=== PATIENT | male | born 1945 | race Caucasian/White ===

== ENCOUNTER 2017-02-27 10:25 | Inpatient (IN) | payer OTHER ==
[~2017-02-27] VITALS: Ht 188 cm; Wt 130.6 kg
[2017-02-27 11:27] LABS: EOSINOPHIL COUNT 0.1 K/uL (0-0.3); HEMATOCRIT 37.3 % (38.0-50.0); IMMATURE GRANULOCYTE (%) 0.3 % (0.0-0.7); INSTRUMENT ABS NEUTROPHIL CT 5.3 K/uL; LYMPHOCYTE COUNT 0.8 K/uL (1.0-2.8); MCH 28.5 PG (29.0-34.0); MCHC 31.4 G/DL (30.0-36.0); MEAN PLAT.VOLUME 12.1 uM^3 (9.0-12.4); MONOCYTE (%) 9.5 % (3-12); MONOCYTE COUNT 0.7 K/uL (0-0.8); NEUTROPHIL (%) 76.2 % (45-76); NEUTROPHIL COUNT 5.3 K/uL (1.8-6.4); PLATELET COUNT 206 K/uL (156-360); RBC DIS.WIDTH-CV 16.2 % (11.8-14.6); RBC DIS.WIDTH-SD 53.7 % (39-53)
[2017-02-27 11:40] LABS: CHLORIDE 103 mEq/L (99-109); POTASSIUM 4.6 mEq/L (3.7-5.4); SODIUM 143 mEq/L (136-147)
[2017-02-27 11:42] LABS: GLUCOSE 112 mg/dL (70-99)
[2017-02-27 11:43] LABS: ANION GAP 10 MEQ/L (2-14)
[2017-02-27 11:44] LABS: TOTAL BILIRUBIN 1.3 mg/dL (0.0-1.0)
[2017-02-27 11:45] LABS: ALKALINE PHOSPHATASE 169 IU/L (3-129)
[2017-02-27 11:46] LABS: GFR ESTIMATE (CALCULATED) 58 mL/min/
[2017-02-27 11:47] LABS: UREA NITROGEN (BUN) 29 mg/dL (9-23)
[2017-02-27 11:49] LABS: TROP-I INTERPRETATION NEGATIVE; TROPONIN-I 0.07 ng/mL (0.0-0.30)
[2017-02-27] MEDS ORDERED: POTASSIUM CHLO20 ME1 PO (12:03)
[2017-02-27] MEDS ORDERED: FUROSEMIDE40 MG PO (12:03)
[2017-02-27] MEDS ORDERED: CARVEDILOL25 MG PO (12:03)
[2017-02-27] MEDS ORDERED: FISH OIL 1,0001 EAC7 PO (12:03)
[2017-02-27] MEDS ORDERED: VITAMIN D31000 UNI2 PO (12:03)
[2017-02-27 18:50] VITALS: BP 146/85
[2017-02-27 19:19] VITALS: BP 138/88
[2017-02-27 23:26] VITALS: BP 130/72
[2017-02-28] VITALS (7 sets, daily range): BP systolic 118–166; BP diastolic 67–91
[2017-03-01 03:35] VITALS: BP 130/75
[2017-03-01 06:36] LABS: ALKALINE PHOSPHATASE 143 IU/L (3-129); ANION GAP 9 MEQ/L (2-14); CHLORIDE 102 MEQ/L (99-109); GFR ESTIMATE (CALCULATED) > 59 mL/min/; GLUCOSE 117 mg/dL (70-99); POTASSIUM 3.9 MEQ/L (3.7-5.4); SAMPLE HEMOLYSIS CHECK 0; SAMPLE ICTERIC CHECK 0; SAMPLE LIPEMIA CHECK 0; SODIUM 144 MEQ/L (136-147); UREA NITROGEN (BUN) 32 mg/dL (9-23)
[2017-03-01 08:53] VITALS: BP 123/68
[2017-03-01 12:34] VITALS: BP 104/54
[2017-03-01 15:51] VITALS: BP 111/69
[2017-03-01 19:50] VITALS: BP 111/71
[2017-03-02] VITALS (7 sets, daily range): BP systolic 103–160; BP diastolic 55–86
[2017-03-02 05:33] LABS: HEMATOCRIT 35.9 % (38.0-50.0); MCH 29.8 PG (29.0-34.0); MCHC 32.6 G/DL (30.0-36.0); MCV 91.3 FL (86-99); MEAN PLAT.VOLUME 11.7 uM^3 (9.0-12.4); PLATELET COUNT 200 K/uL (156-360); RBC DIS.WIDTH-CV 16.1 % (11.8-14.6); RBC DIS.WIDTH-SD 53.5 % (39-53); RED BLOOD COUNT 3.93 M/uL (4.00-5.50); WHITE BLOOD COUNT 5.5 K/uL (4.1-10.2)
[2017-03-02 05:57] LABS: ANION GAP 8 MEQ/L (2-14); CHLORIDE 100 MEQ/L (99-109); GFR ESTIMATE (CALCULATED) 53 mL/min/; GLUCOSE 112 mg/dL (70-99); POTASSIUM 3.8 MEQ/L (3.7-5.4); SAMPLE HEMOLYSIS CHECK 0; SAMPLE ICTERIC CHECK 0; SAMPLE LIPEMIA CHECK 0; SODIUM 144 MEQ/L (136-147); UREA NITROGEN (BUN) 30 mg/dL (9-23)
[2017-03-03 04:00] VITALS: BP 129/73
[2017-03-03 08:47] VITALS: BP 159/78
[2017-03-03 10:09] LABS: HEMATOCRIT 37.9 % (38.0-50.0); MCH 27.8 PG (29.0-34.0); MCHC 30.3 G/DL (30.0-36.0); MCV 91.8 FL (86-99); MEAN PLAT.VOLUME 11.9 uM^3 (9.0-12.4); PLATELET COUNT 221 K/uL (156-360); RBC DIS.WIDTH-CV 16.1 % (11.8-14.6); RBC DIS.WIDTH-SD 54.4 % (39-53); RED BLOOD COUNT 4.13 M/uL (4.00-5.50); WHITE BLOOD COUNT 5.7 K/uL (4.1-10.2)
[2017-03-03 10:25] LABS: ANION GAP 8 MEQ/L (2-14); CHLORIDE 100 MEQ/L (99-109); GFR ESTIMATE (CALCULATED) 53 mL/min/; GLUCOSE 140 mg/dL (70-99); POTASSIUM 4.4 MEQ/L (3.7-5.4); SAMPLE HEMOLYSIS CHECK 0; SAMPLE ICTERIC CHECK 0; SAMPLE LIPEMIA CHECK 0; SODIUM 144 MEQ/L (136-147); UREA NITROGEN (BUN) 29 mg/dL (9-23)
[2017-03-03 11:33] VITALS: BP 128/71
[2017-03-03 16:16] VITALS: BP 135/80
[2017-03-03 20:18] VITALS: BP 97/62
[2017-03-03 20:40] VITALS: BP 114/60
[2017-03-04 00:11] VITALS: BP 116/62
[2017-03-04 04:16] VITALS: BP 123/72
[2017-03-04 07:47] VITALS: BP 147/66
[2017-03-04 10:53] LABS: ANION GAP 7 MEQ/L (2-14); CHLORIDE 97 MEQ/L (99-109); POTASSIUM 3.8 MEQ/L (3.7-5.4); SAMPLE HEMOLYSIS CHECK 0; SAMPLE ICTERIC CHECK 0; SAMPLE LIPEMIA CHECK 0; SODIUM 142 MEQ/L (136-147)
[2017-03-04 10:58] LABS: GFR ESTIMATE (CALCULATED) 58 mL/min/; GLUCOSE 133 mg/dL (70-99); UREA NITROGEN (BUN) 28 mg/dL (9-23)
[2017-03-04 12:09] VITALS: BP 131/70
[2017-03-04 16:17] VITALS: BP 128/67
[2017-03-04 19:27] VITALS: BP 170/66
[2017-03-05 00:02] VITALS: BP 106/57
[2017-03-05 04:05] VITALS: BP 120/58
[2017-03-05 07:27] VITALS: BP 131/69
[2017-03-05 11:28] VITALS: BP 116/66
[2017-03-05 11:53] LABS: ANION GAP 8 MEQ/L (2-14); CHLORIDE 95 MEQ/L (99-109); POTASSIUM 3.5 MEQ/L (3.7-5.4); SAMPLE HEMOLYSIS CHECK 0; SAMPLE ICTERIC CHECK 0; SAMPLE LIPEMIA CHECK 0; SODIUM 142 MEQ/L (136-147)
[2017-03-05 11:58] LABS: GFR ESTIMATE (CALCULATED) 46 mL/min/; GLUCOSE 123 mg/dL (70-99); UREA NITROGEN (BUN) 30 mg/dL (9-23)
[2017-03-05 16:00] VITALS: BP 130/62
[2017-03-05 19:43] VITALS: BP 107/58
[2017-03-06] VITALS: BP 127/63
[2017-03-06 03:25] VITALS: BP 108/58
[2017-03-06 06:47] LABS: ANION GAP 8 MEQ/L (2-14); CHLORIDE 94 MEQ/L (99-109); GFR ESTIMATE (CALCULATED) 46 mL/min/; GLUCOSE 111 mg/dL (70-99); POTASSIUM 3.6 MEQ/L (3.7-5.4); SAMPLE HEMOLYSIS CHECK 0; SAMPLE ICTERIC CHECK 0; SAMPLE LIPEMIA CHECK 0; SODIUM 142 MEQ/L (136-147); UREA NITROGEN (BUN) 29 mg/dL (9-23)
[2017-03-06 07:29] VITALS: BP 92/55
[2017-03-06 10:50] VITALS: BP 100/55
[2017-03-06] MEDS ORDERED: BUMETANIDE1 MG PO (12:05)
[2017-03-06] MEDS ORDERED: VALSARTAN160 MG PO (12:05)
[2017-03-06 12:29] VITALS: BP 109/60
== END 2017-03-06 14:06 | disposition home health service (06) | DRG 291 ==
LOC: EME 10:25 → 5SOUTH 13:03 → EDOF 13:03 → ENRESERV 13:07 → 5SOUTH 17:21
PROVIDERS: Emergency Medicine; Internal Medicine; Internal Medicine Cardiovascular Disease; Nurse Practitioner Adult Health
DX: I13.0 Hypertensive heart and chronic kidney disease with heart failure and stage 1 through stage 4 chronic kidney disease, or unspecified chronic kidney disease (principal); J96.21 Acute and chronic respiratory failure with hypoxia; I95.9 Hypotension, unspecified; Z99.81 Dependence on supplemental oxygen; I27.2 Other secondary pulmonary hypertension; Z68.41 Body mass index [BMI] 40.0-44.9, adult; I48.2 Chronic atrial fibrillation; I50.33 Acute on chronic diastolic (congestive) heart failure; G47.33 Obstructive sleep apnea (adult) (pediatric); N18.9 Chronic kidney disease, unspecified; Z91.19 Patient's noncompliance with other medical treatment and regimen; E78.5 Hyperlipidemia, unspecified; I08.1 Rheumatic disorders of both mitral and tricuspid valves; E66.01 Morbid (severe) obesity due to excess calories; I45.10 Unspecified right bundle-branch block; Z91.14 Patient's other noncompliance with medication regimen; Z87.891 Personal history of nicotine dependence; M79.89 Other specified soft tissue disorders; J98.11 Atelectasis; N48.89 Other specified disorders of penis; N50.89 Other specified disorders of the male genital organs; R14.0 Abdominal distension (gaseous)
CPT/HCPCS: 71020; 80048; 80048 91; 80053; 83880; 84484; 85025; 85027; 93005; 93306; 94799; 99281; 99285; J1650; J1940; J3475

== ENCOUNTER 2017-04-24 13:00 | Inpatient (IN) | payer OTHER ==
[~2017-04-24] VITALS: Ht 180.3 cm; Wt 144.0 kg
[~2017-04-24 13:00] MED LIST: BUMETANIDE1 MG PO; CARVEDILOL25 MG PO; FISH OIL 1,0001 EAC7 PO; FUROSEMIDE40 MG PO; POTASSIUM CHLO20 ME1 PO; VALSARTAN160 MG PO; VITAMIN D31000 UNI2 PO
[2017-04-24 13:39] LABS: EOSINOPHIL (%) 0.4 % (0-5); HEMATOCRIT 45.1 % (38.0-50.0); IMMATURE GRANULOCYTE (%) 0.4 % (0.0-0.7); INSTRUMENT ABS NEUTROPHIL CT 8.6 K/uL; LYMPHOCYTE COUNT 0.7 K/uL (1.0-2.8); MCH 28.4 PG (29.0-34.0); MCHC 30.8 G/DL (30.0-36.0); MEAN PLAT.VOLUME 12.1 uM^3 (9.0-12.4); MONOCYTE (%) 10.6 % (3-12); MONOCYTE COUNT 1.1 K/uL (0-0.8); NEUTROPHIL COUNT 8.6 K/uL (1.8-6.4); PLATELET COUNT 240 K/uL (156-360); RBC DIS.WIDTH-CV 17.4 % (11.8-14.6); RBC DIS.WIDTH-SD 58.5 % (39-53); WHITE BLOOD COUNT 10.5 K/uL (4.1-10.2)
[2017-04-24 13:45] LABS: INTER. NORMALIZED RATIO 1.5; PROTHROMBIN TIME 16.9 SEC (10.2-12.9)
[2017-04-24 13:48] LABS: PTT 24.7 SEC (25-37)
[2017-04-24 14:13] LABS: CHLORIDE 102 mEq/L (99-109); POTASSIUM 4.5 mEq/L (3.7-5.4); SODIUM 141 mEq/L (136-147)
[2017-04-24 14:16] LABS: GLUCOSE 109 mg/dL (70-99)
[2017-04-24 14:18] LABS: ANION GAP 11 MEQ/L (2-14); TOTAL BILIRUBIN 1.3 mg/dL (0.0-1.0)
[2017-04-24 14:19] LABS: ALKALINE PHOSPHATASE 133 IU/L (3-129); GFR ESTIMATE (CALCULATED) 58 mL/min/
[2017-04-24 14:21] LABS: DIRECT BILIRUBIN 0.8 mg/dL (0.0-0.3); UREA NITROGEN (BUN) 27 mg/dL (9-23)
[2017-04-24 14:24] LABS: TROP-I INTERPRETATION NEGATIVE; TROPONIN-I 0.12 ng/mL (0.0-0.30)
[2017-04-24 20:32] LABS: TROP-I INTERPRETATION NEGATIVE; TROPONIN-I 0.18 ng/mL (0.0-0.30)
[2017-04-24 23:49] VITALS: BP 127/66
[2017-04-25 03:39] VITALS: BP 119/77
[2017-04-25 07:03] LABS: HEMATOCRIT 41.3 % (38.0-50.0); MCH 28.7 PG (29.0-34.0); MCHC 30.3 G/DL (30.0-36.0); MCV 94.9 FL (86-99); MEAN PLAT.VOLUME 11.7 uM^3 (9.0-12.4); PLATELET COUNT 208 K/uL (156-360); RBC DIS.WIDTH-CV 17.1 % (11.8-14.6); RBC DIS.WIDTH-SD 59.5 % (39-53); RED BLOOD COUNT 4.35 M/uL (4.00-5.50)
[2017-04-25 07:29] LABS: TROP-I INTERPRETATION NEGATIVE; TROPONIN-I 0.18 ng/mL (0.0-0.30)
[2017-04-25 08:37] VITALS: BP 121/85
[2017-04-25 08:47] VITALS: BP 125/57
[2017-04-25 13:13] VITALS: BP 90/53
[2017-04-25 15:09] VITALS: BP 93/52
[2017-04-25 18:59] VITALS: BP 101/61
[2017-04-26 00:15] VITALS: BP 89/56
[2017-04-26 05:08] VITALS: BP 132/92
[2017-04-26 07:29] LABS: ANION GAP 8 MEQ/L (2-14); CHLORIDE 100 MEQ/L (99-109); GFR ESTIMATE (CALCULATED) 53 mL/min/; GLUCOSE 122 mg/dL (70-99); MAGNESIUM 1.9 mg/dl (1.3-2.7); POTASSIUM 4.3 MEQ/L (3.7-5.4); SAMPLE HEMOLYSIS CHECK 0; SAMPLE ICTERIC CHECK 0; SAMPLE LIPEMIA CHECK 0; SODIUM 142 MEQ/L (136-147); UREA NITROGEN (BUN) 33 mg/dL (9-23)
[2017-04-26 07:57] VITALS: BP 125/75
[2017-04-26 14:57] VITALS: BP 142/73
[2017-04-26 20:00] VITALS: BP 134/75
[2017-04-26 20:23] VITALS: BP 137/69
[2017-04-27] VITALS (7 sets, daily range): BP systolic 98–147; BP diastolic 57–87
[2017-04-27 09:10] LABS: HEMATOCRIT 41.7 % (38.0-50.0); MCH 28.3 PG (29.0-34.0); MCHC 30.5 G/DL (30.0-36.0); MCV 93.1 FL (86-99); MEAN PLAT.VOLUME 11.7 uM^3 (9.0-12.4); PLATELET COUNT 222 K/uL (156-360); RBC DIS.WIDTH-CV 16.7 % (11.8-14.6); RBC DIS.WIDTH-SD 56.9 % (39-53); RED BLOOD COUNT 4.48 M/uL (4.00-5.50); WHITE BLOOD COUNT 8.2 K/uL (4.1-10.2)
[2017-04-27 09:37] LABS: ALKALINE PHOSPHATASE 119 IU/L (3-129); ANION GAP ND MEQ/L (2-14); CHLORIDE 97 MEQ/L (99-109); GFR ESTIMATE (CALCULATED) 49 mL/min/; GLUCOSE 113 mg/dL (70-99); MAGNESIUM 1.8 mg/dl (1.3-2.7); POTASSIUM 3.8 MEQ/L (3.7-5.4); SAMPLE HEMOLYSIS CHECK 0; SAMPLE ICTERIC CHECK 0; SAMPLE LIPEMIA CHECK 0; SODIUM 144 MEQ/L (136-147); UREA NITROGEN (BUN) 30 mg/dL (9-23)
[2017-04-27 09:38] LABS: CARBON DIOXIDE (BICARBONATE) > 40.0 MEQ/L (20-31)
[2017-04-28] VITALS (17 sets, daily range): BP systolic 92–125; BP diastolic 39–76
[2017-04-28 05:58] LABS: BASOPHIL COUNT 0.1 K/uL (0-0.1); EOSINOPHIL (%) 0.8 % (0-5); EOSINOPHIL COUNT 0.1 K/uL (0-0.3); HEMATOCRIT 42.9 % (38.0-50.0); IMMATURE GRANULOCYTE (%) 0.4 % (0.0-0.7); INSTRUMENT ABS NEUTROPHIL CT 5.5 K/uL; LYMPHOCYTE COUNT 0.5 K/uL (1.0-2.8); MCH 28.3 PG (29.0-34.0); MCHC 30.1 G/DL (30.0-36.0); MCV 94.1 FL (86-99); MEAN PLAT.VOLUME 12.3 uM^3 (9.0-12.4); MONOCYTE (%) 12.7 % (3-12); MONOCYTE COUNT 0.9 K/uL (0-0.8); NEUTROPHIL (%) 77.8 % (45-76); NEUTROPHIL COUNT 5.5 K/uL (1.8-6.4); PLATELET COUNT 202 K/uL (156-360); RBC DIS.WIDTH-CV 16.7 % (11.8-14.6); RBC DIS.WIDTH-SD 58.4 % (39-53); RED BLOOD COUNT 4.56 M/uL (4.00-5.50); WHITE BLOOD COUNT 7.1 K/uL (4.1-10.2)
[2017-04-28 06:35] LABS: ANION GAP 6 MEQ/L (2-14); CHLORIDE 98 MEQ/L (99-109); GFR ESTIMATE (CALCULATED) 49 mL/min/; GLUCOSE 122 mg/dL (70-99); SAMPLE HEMOLYSIS CHECK 0; SAMPLE ICTERIC CHECK 0; SAMPLE LIPEMIA CHECK 0; SODIUM 143 MEQ/L (136-147); UREA NITROGEN (BUN) 32 mg/dL (9-23)
[2017-04-28 12:03] LABS: BASE EXCESS 11.8 mEq/L (-3 to +3); BICARBONATE 41.8 mEq/L (22-26); CARBOXY HGB 2.4 % (0-5); METHEMOGLOBIN 1.4 % (0-1.5); PCO2 85 mm Hg (35-45); PO2 88 mm Hg (80-100)
[2017-04-28 12:04] LABS: COMMENTS - BLOOD GASES A+C+; DEVICE NC; O2 FLOW 2 L/MIN; SITE RR
[2017-04-28 14:46] LABS: METH RESISTANT S AUREUS PCR NEGATIVE (NEGATIVE); PROBE CHECK PASS; SPECIMEN PROCESSING CONTROL PASS
[2017-04-28 15:14] LABS: BASE EXCESS 14.2 mEq/L (-3 to +3); BICARBONATE 42.8 mEq/L (22-26); CARBOXY HGB 2.4 % (0-5); METHEMOGLOBIN 1.4 % (0-1.5); PCO2 74 mm Hg (35-45); PO2 80 mm Hg (80-100); pH 7.37 (7.35-7.45)
[2017-04-28 15:15] LABS: COMMENTS - BLOOD GASES A+C+; DEVICE 840 PB MASK; FI02 40 %; MODE SPONT NIV; SITE RR
[2017-04-28 15:16] LABS: PEEP 5 CM/H20; PRES. SUPPORT 15 CM/H2O; TOTAL RESP RATE 27 resp/min
[2017-04-29] VITALS (24 sets, daily range): BP systolic 98–145; BP diastolic 53–82
[2017-04-29 02:27] LABS: BASE EXCESS 11.5 mEq/L (-3 to +3); BICARBONATE 40.5 mEq/L (22-26); CARBOXY HGB 2.3 % (0-5); COMMENTS - BLOOD GASES C+A+; METHEMOGLOBIN 1.1 % (0-1.5); MODE SPONT; O2 FLOW 6 L/MIN; PCO2 75 mm Hg (35-45); PO2 62 mm Hg (80-100); SITE RR; TOTAL RESP RATE 12 resp/min; pH 7.34 (7.35-7.45)
[2017-04-29 05:45] LABS: EOSINOPHIL (%) 0.9 % (0-5); EOSINOPHIL COUNT 0.1 K/uL (0-0.3); HEMATOCRIT 40.5 % (38.0-50.0); IMMATURE GRANULOCYTE (%) 0.2 % (0.0-0.7); INSTRUMENT ABS NEUTROPHIL CT 4.8 K/uL; LYMPHOCYTE COUNT 0.7 K/uL (1.0-2.8); MCHC 30.6 G/DL (30.0-36.0); MCV 94.6 FL (86-99); MEAN PLAT.VOLUME 12.1 uM^3 (9.0-12.4); MONOCYTE (%) 11.5 % (3-12); MONOCYTE COUNT 0.7 K/uL (0-0.8); NEUTROPHIL (%) 75.8 % (45-76); NEUTROPHIL COUNT 4.8 K/uL (1.8-6.4); PLATELET COUNT 179 K/uL (156-360); RBC DIS.WIDTH-CV 17.1 % (11.8-14.6); RBC DIS.WIDTH-SD 58.9 % (39-53); RED BLOOD COUNT 4.28 M/uL (4.00-5.50); WHITE BLOOD COUNT 6.4 K/uL (4.1-10.2)
[2017-04-29 06:21] LABS: ALKALINE PHOSPHATASE 118 IU/L (3-129); ANION GAP 11 MEQ/L (2-14); CHLORIDE 96 MEQ/L (99-109); GFR ESTIMATE (CALCULATED) 46 mL/min/; GLUCOSE 115 mg/dL (70-99); POTASSIUM 3.8 MEQ/L (3.7-5.4); SAMPLE HEMOLYSIS CHECK 0; SAMPLE ICTERIC CHECK 0; SAMPLE LIPEMIA CHECK 0; SODIUM 143 MEQ/L (136-147); TOTAL BILIRUBIN 1.1 MG/DL (0.0-1.0); UREA NITROGEN (BUN) 34 mg/dL (9-23)
[2017-04-30] VITALS (12 sets, daily range): BP systolic 96–156; BP diastolic 62–77
[2017-04-30 09:41] LABS: BICARBONATE 42.1 mEq/L (22-26); CARBOXY HGB 2.6 % (0-5); METHEMOGLOBIN 1.5 % (0-1.5); PO2 62 mm Hg (80-100)
[2017-04-30 09:42] LABS: COMMENTS - BLOOD GASES A+C+; DEVICE CANNULA; O2 FLOW 2 L/MIN; PCO2 62 mm Hg (35-45); SITE RR; pH 7.44 (7.35-7.45)
[2017-04-30 13:52] LABS: ANION GAP ND MEQ/L (2-14); CHLORIDE 96 MEQ/L (99-109); GFR ESTIMATE (CALCULATED) 53 mL/min/; GLUCOSE 126 mg/dL (70-99); POTASSIUM 3.4 MEQ/L (3.7-5.4); SAMPLE HEMOLYSIS CHECK 0; SAMPLE ICTERIC CHECK 0; SAMPLE LIPEMIA CHECK 0; SODIUM 145 MEQ/L (136-147); UREA NITROGEN (BUN) 37 mg/dL (9-23)
[2017-04-30 14:07] LABS: CARBON DIOXIDE (BICARBONATE) > 40.0 MEQ/L (20-31)
[2017-05-01] VITALS (8 sets, daily range): BP systolic 102–127; BP diastolic 64–78
[2017-05-01 04:42] LABS: EOSINOPHIL (%) 1.7 % (0-5); EOSINOPHIL COUNT 0.1 K/uL (0-0.3); HEMATOCRIT 43.1 % (38.0-50.0); IMMATURE GRANULOCYTE (%) 0.3 % (0.0-0.7); INSTRUMENT ABS NEUTROPHIL CT 5.7 K/uL; LYMPHOCYTE COUNT 0.9 K/uL (1.0-2.8); MCHC 30.6 G/DL (30.0-36.0); MCV 91.3 FL (86-99); MEAN PLAT.VOLUME 12.4 uM^3 (9.0-12.4); MONOCYTE (%) 11.5 % (3-12); MONOCYTE COUNT 0.9 K/uL (0-0.8); NEUTROPHIL (%) 74.9 % (45-76); NEUTROPHIL COUNT 5.7 K/uL (1.8-6.4); PLATELET COUNT 183 K/uL (156-360); RBC DIS.WIDTH-CV 16.8 % (11.8-14.6); RBC DIS.WIDTH-SD 56.6 % (39-53); RED BLOOD COUNT 4.72 M/uL (4.00-5.50); WHITE BLOOD COUNT 7.6 K/uL (4.1-10.2)
[2017-05-01 05:09] LABS: POTASSIUM 3.6 mEq/L (3.7-5.4)
[2017-05-01 05:28] LABS: CHLORIDE 85 mEq/L (99-109); SODIUM 125 mEq/L (136-147)
[2017-05-01 05:57] LABS: GLUCOSE 113 mg/dL (70-99)
[2017-05-01 05:58] LABS: ANION GAP 14 MEQ/L (2-14)
[2017-05-01 06:01] LABS: GFR ESTIMATE (CALCULATED) 46 mL/min/; UREA NITROGEN (BUN) 33 mg/dL (9-23)
[2017-05-01 08:18] LABS: MAGNESIUM 2.4 mg/dL (1.3-2.7)
[2017-05-01 12:05] LABS: ANION GAP 5 MEQ/L (2-14); CHLORIDE 98 MEQ/L (99-109); GFR ESTIMATE (CALCULATED) 49 mL/min/; GLUCOSE 130 mg/dL (70-99); POTASSIUM 3.9 MEQ/L (3.7-5.4); SAMPLE HEMOLYSIS CHECK 0; SAMPLE ICTERIC CHECK 0; SAMPLE LIPEMIA CHECK 0; UREA NITROGEN (BUN) 33 mg/dL (9-23)
[2017-05-01 12:06] LABS: SODIUM 141 MEQ/L (136-147)
[2017-05-01 14:10] LABS: INTER. NORMALIZED RATIO 1.6; PROTHROMBIN TIME 17.8 SEC (10.2-12.9)
[2017-05-02] VITALS (7 sets, daily range): BP systolic 97–123; BP diastolic 57–72
[2017-05-02 05:32] LABS: EOSINOPHIL (%) 1.6 % (0-5); EOSINOPHIL COUNT 0.1 K/uL (0-0.3); HEMATOCRIT 38.1 % (38.0-50.0); IMMATURE GRANULOCYTE (%) 0.3 % (0.0-0.7); INSTRUMENT ABS NEUTROPHIL CT 4.9 K/uL; LYMPHOCYTE COUNT 0.8 K/uL (1.0-2.8); MCH 29.1 PG (29.0-34.0); MCHC 31.8 G/DL (30.0-36.0); MCV 91.6 FL (86-99); MEAN PLAT.VOLUME 12.4 uM^3 (9.0-12.4); MONOCYTE (%) 13.4 % (3-12); MONOCYTE COUNT 0.9 K/uL (0-0.8); NEUTROPHIL (%) 72.8 % (45-76); NEUTROPHIL COUNT 4.9 K/uL (1.8-6.4); NRBC (%) 0.3 /100 WBC (0-0); PLATELET COUNT 154 K/uL (156-360); RBC DIS.WIDTH-CV 16.7 % (11.8-14.6); RBC DIS.WIDTH-SD 55.8 % (39-53); RED BLOOD COUNT 4.16 M/uL (4.00-5.50); WHITE BLOOD COUNT 6.8 K/uL (4.1-10.2)
[2017-05-02 05:53] LABS: INTER. NORMALIZED RATIO 1.5
[2017-05-02 05:55] LABS: ANION GAP 8 MEQ/L (2-14); CHLORIDE 98 MEQ/L (99-109); GFR ESTIMATE (CALCULATED) 49 mL/min/; GLUCOSE 104 mg/dL (70-99); POTASSIUM 4.2 MEQ/L (3.7-5.4); SAMPLE HEMOLYSIS CHECK 0; SAMPLE ICTERIC CHECK 0; SAMPLE LIPEMIA CHECK 0; SODIUM 141 MEQ/L (136-147); UREA NITROGEN (BUN) 32 mg/dL (9-23)
[2017-05-03 06:43] LABS: EOSINOPHIL (%) 2.3 % (0-5); EOSINOPHIL COUNT 0.2 K/uL (0-0.3); HEMATOCRIT 39.4 % (38.0-50.0); IMMATURE GRANULOCYTE (%) 0.3 % (0.0-0.7); LYMPHOCYTE COUNT 0.8 K/uL (1.0-2.8); MCH 28.3 PG (29.0-34.0); MCHC 30.2 G/DL (30.0-36.0); MCV 93.6 FL (86-99); MEAN PLAT.VOLUME 12.3 uM^3 (9.0-12.4); MONOCYTE (%) 13.2 % (3-12); MONOCYTE COUNT 0.9 K/uL (0-0.8); NEUTROPHIL (%) 72.7 % (45-76); PLATELET COUNT 142 K/uL (156-360); RBC DIS.WIDTH-CV 16.6 % (11.8-14.6); RBC DIS.WIDTH-SD 56.6 % (39-53); RED BLOOD COUNT 4.21 M/uL (4.00-5.50); WHITE BLOOD COUNT 6.9 K/uL (4.1-10.2)
[2017-05-03 07:07] LABS: ANION GAP 4 MEQ/L (2-14); CHLORIDE 97 MEQ/L (99-109); GFR ESTIMATE (CALCULATED) 53 mL/min/; GLUCOSE 105 mg/dL (70-99); POTASSIUM 4.1 MEQ/L (3.7-5.4); SAMPLE HEMOLYSIS CHECK 0; SAMPLE ICTERIC CHECK 0; SAMPLE LIPEMIA CHECK 0; SODIUM 141 MEQ/L (136-147); UREA NITROGEN (BUN) 32 mg/dL (9-23)
[2017-05-03 08:38] LABS: INTER. NORMALIZED RATIO 1.4; PROTHROMBIN TIME 15.4 SEC (10.2-12.9)
[2017-05-03 08:52] VITALS: BP 111/69
[2017-05-03 16:52] VITALS: BP 108/58
[2017-05-03 23:19] VITALS: BP 112/63
[2017-05-04 01:13] LABS: ADD MIUA? YES; BILIRUBIN NEGATIVE; BLOOD LARGE; COLOR AMBER ((YELLOW)); GLUCOSE (STRIP) NEGATIVE; KETONES NEGATIVE; LEUKOCYTES TRACE; NITRITE NEGATIVE; PROTEIN (STRIP) 100; SPECIFIC GRAVITY 1.013 (1.000-1.030); UROBILINOGEN 0.2 MG/DL (0.2-1.0)
[2017-05-04 01:24] LABS: RED BLOOD CELLS TNTC /HPF (0-5)
[2017-05-04 02:46] VITALS: BP 144/63
[2017-05-04 06:41] LABS: EOSINOPHIL (%) 1.9 % (0-5); EOSINOPHIL COUNT 0.1 K/uL (0-0.3); HEMATOCRIT 36.3 % (38.0-50.0); IMMATURE GRANULOCYTE (%) 0.3 % (0.0-0.7); INSTRUMENT ABS NEUTROPHIL CT 4.5 K/uL; LYMPHOCYTE COUNT 0.8 K/uL (1.0-2.8); MCH 28.3 PG (29.0-34.0); MCHC 30.9 G/DL (30.0-36.0); MCV 91.7 FL (86-99); MEAN PLAT.VOLUME 12.7 uM^3 (9.0-12.4); MONOCYTE (%) 11.8 % (3-12); MONOCYTE COUNT 0.7 K/uL (0-0.8); NEUTROPHIL (%) 72.2 % (45-76); NEUTROPHIL COUNT 4.5 K/uL (1.8-6.4); PLATELET COUNT 137 K/uL (156-360); RBC DIS.WIDTH-CV 16.5 % (11.8-14.6); RBC DIS.WIDTH-SD 55.8 % (39-53); RED BLOOD COUNT 3.96 M/uL (4.00-5.50); WHITE BLOOD COUNT 6.2 K/uL (4.1-10.2)
[2017-05-04 06:47] LABS: INTER. NORMALIZED RATIO 1.5; PROTHROMBIN TIME 16.4 SEC (10.2-12.9)
[2017-05-04 07:16] LABS: ANION GAP 6 MEQ/L (2-14); CHLORIDE 95 MEQ/L (99-109); GFR ESTIMATE (CALCULATED) 46 mL/min/; GLUCOSE 114 mg/dL (70-99); SAMPLE HEMOLYSIS CHECK 0; SAMPLE ICTERIC CHECK 0; SAMPLE LIPEMIA CHECK 0; SODIUM 141 MEQ/L (136-147); UREA NITROGEN (BUN) 35 mg/dL (9-23)
[2017-05-04 07:18] VITALS: BP 119/68; BP 135/75
[2017-05-04] MEDS ORDERED: CARVEDILOL25 MG PO (12:47)
[2017-05-04] MEDS ORDERED: LOSARTAN POTASS25 MG PO (12:47)
[2017-05-04] MEDS ORDERED: COUMADIN1 MG PO (12:47)
[2017-05-04] MEDS ORDERED: BUMETANIDE1 MG PO (12:47)
[2017-05-04] MEDS ORDERED: ASPIR-LOW81 MG PO (12:47)
== END 2017-05-04 15:32 | DRG 291 ==
LOC: EME 13:00 → EDOF 16:46 → 4EAST 16:46 → ENRESERV 16:51 → 4EAST 23:40 → ENRESERV 04-28 12:45 → 4WEST 04-28 13:04 → ENRESERV 04-30 14:47 → CANRESERV 04-30 14:47 → ENRESERV 04-30 14:59 → 5EAST 05-02 15:11 → ENPENDDIS 05-04 → EDPENDDISTM 05-04 15:00 → 5EAST 05-04 15:32
PROVIDERS: Emergency Medicine; Hospitalist; Internal Medicine; Internal Medicine Cardiovascular Disease; Internal Medicine Critical Care Medicine; Obstetrics & Gynecology
PROC: 5A09357 Assistance with Respiratory Ventilation, Less than 24 Consecutive Hours, Continuous Positive Airway Pressure (ICD-10-PCS; principal; 2017-04-28)
DX: I13.0 Hypertensive heart and chronic kidney disease with heart failure and stage 1 through stage 4 chronic kidney disease, or unspecified chronic kidney disease (principal); I50.33 Acute on chronic diastolic (congestive) heart failure; J96.21 Acute and chronic respiratory failure with hypoxia; J96.22 Acute and chronic respiratory failure with hypercapnia; Z68.41 Body mass index [BMI] 40.0-44.9, adult; I47.2 Ventricular tachycardia; R18.8 Other ascites; B49 Unspecified mycosis; N18.3 Chronic kidney disease, stage 3 (moderate); G47.33 Obstructive sleep apnea (adult) (pediatric); I27.29 Other secondary pulmonary hypertension; I27.81 Cor pulmonale (chronic); E66.9 Obesity, unspecified; E78.5 Hyperlipidemia, unspecified; I48.2 Chronic atrial fibrillation; Z79.01 Long term (current) use of anticoagulants; Z87.891 Personal history of nicotine dependence; Z91.14 Patient's other noncompliance with medication regimen; Z91.19 Patient's noncompliance with other medical treatment and regimen; Z99.81 Dependence on supplemental oxygen
CPT/HCPCS: 36600; 70450; 71020; 80048; 80048 91; 80053; 80076; 81003; 82803; 83605; 83735; 83880; 84484; 85025; 85027; 85610; 85730; 87641; 93005; 94002; 94010; 94660; 94760; 94799; 97530 GO; 99202; 99281; 99285; J1650; J1940